=== PATIENT | male | born 1985 | race Caucasian/White ===

== ENCOUNTER 2017-01-24 13:46 | Emergency (ER) | payer OTHER ==
--- NOTE | 2017-01-24 14:30 | NUR ---
CALLED WAITING ROOM NO ANSWER
--- NOTE | 2017-01-24 14:56 | NUR ---
CALLED IN WAITING ROOM NO ANSWER
--- NOTE | 2017-01-24 15:18 | NUR ---
Patient left without being seen by ER Physician
== END 2017-01-24 15:19 | disposition left against medical advice (07) ==
LOC: ER 13:49
DX: Z53.21 Procedure and treatment not carried out due to patient leaving prior to being seen by health care provider (principal)